=== PATIENT | female | born 1985 | race Caucasian/White ===

== ENCOUNTER 2023-01-07 09:53 | Emergency (ER) | payer OTHER ==
[2023-01-07] MEDS ORDERED: Bacitracin 1 PK ONE (10:24)
[2023-01-07] MEDS ORDERED: Boostrix 0.5 ML (Tdap) VIAL (>/=7 yrs of age) ONE (10:25)
== END 2023-01-07 10:52 | disposition home or self-care (01) ==
LOC: NAV ERS 09:53
DX: T23.152A Burn of first degree of left palm, initial encounter (principal); X15.0XXA Contact with hot stove (kitchen), initial encounter
CPT/HCPCS: 90471; 90715; 99283